=== PATIENT | male | born 1950 | race Caucasian/White ===

== ENCOUNTER 2019-07-08 18:50 | Inpatient (IN) ==
[2019-07-08] MEDS ORDERED: SODIUM CHLORIDE 0.9% 1,000 ML IV STA (19:08)
[2019-07-08] MEDS ORDERED: ASPIRIN 325 MG TABLET PO STA (19:08)
[2019-07-08 19:17] LABS: Basophils # 0.1 10*3/uL (0.0-0.2); Basophils % 0.6 % (0.0-0.8); Eosinophils # 0.3 10*3/uL (0.0-0.87); Eosinophils % 2.9 % (0.00-10.9); Hemoglobin 14.3 GM/DL (14.0-18.0); Immature Granulocytes % 0.6 %; Immature Granulocytes Absolute 0.07 #; Lymphocytes # 3.7 10*3/uL (1.4-4.0); Lymphocytes % 31.6 % (21.2-54.2); Mean Corpuscular HGB Conc 33.3 GM/DL (32-36); Mean Corpuscular Volume 84.1 FL (87-102); Mean Platelet Volume 10.8 FL (9.6-12.0); Monocytes % 8.2 % (1.7-12.7); Neutrophils % 56.1 % (38.7-73.9); Platelet Count 330 T/CUMM (130-400); Red Blood Count 5.11 MC/CUMM (3.8-5.5); Red Cell Distribution Width 13.3 % (9.3-17.3); White Blood Count 11.7 T/CUMM (4-12)
[2019-07-08 19:27] LABS: PT Patient Result 10.4 SECS (9.8-11.9)
[2019-07-08 19:40] LABS: Alanine Aminotransferase 29 U/L (16-61); Albumin 3.9 G/DL (3.4-5.0); Alkaline Phosphatase 71 U/L (45-117); Aspartate Amino Transferase 18 U/L (0-37); Blood Urea Nitrogen 18 MG/DL (7-18); CKMB % 3.2 %; Calcium 9.2 MG/DL (8.5-10.1); Glucose 110 MG/DL (74-106); Osmolality,Calculated 279.5 MOS/KG (273-304); Total Protein 7.3 G/DL (6.4-8.3); Troponin I < 0.015 NG/ML (0.00-0.045)
[2019-07-08 19:43] LABS: Estimated Glom Filtration Rate 0 ML/MIN
[2019-07-08] MEDS ORDERED: MAGNESIUM SULF RIDER 2 GM in PREMIX 1 EACH IV PRN (20:29)
[2019-07-08] MEDS ORDERED: MAGNESIUM SULF RIDER 4 GM in PREMIX 1 EACH IV PRN (20:29)
[2019-07-08] MEDS ORDERED: ONDANSETRON 4 MG/2 ML VIAL IV PRN (20:29)
[2019-07-08] MEDS: SODIUM CHLORIDE 0.45% 1,000 ML IV SCH (20:45)
[2019-07-08 22:18] LABS: Troponin I < 0.015 NG/ML (0.00-0.045)
[2019-07-08] MEDS: ENOXAPARIN 40 MG/0.4 ML SYRINGE SUBCUT SCH (22:52)
[2019-07-09 00:06] LABS: CKMB % 2.5 %; Troponin I < 0.015 NG/ML (0.00-0.045)
[2019-07-09 04:33] LABS: Basophils % 0.4 % (0.0-0.8); Eosinophils # 0.2 10*3/uL (0.0-0.87); Hematocrit 38.1 VOL% (42.0-52.0); Hemoglobin 12.6 GM/DL (14.0-18.0); Immature Granulocytes % 0.3 %; Immature Granulocytes Absolute 0.03 #; Lymphocytes # 2.9 10*3/uL (1.4-4.0); Lymphocytes % 29.9 % (21.2-54.2); Mean Corpuscular HGB Conc 33.1 GM/DL (32-36); Mean Corpuscular Volume 83.9 FL (87-102); Monocytes % 8.8 % (1.7-12.7); Neutrophils % 58.6 % (38.7-73.9); Platelet Count 234 T/CUMM (130-400); Red Blood Count 4.54 MC/CUMM (3.8-5.5); Red Cell Distribution Width 13.7 % (9.3-17.3); White Blood Count 9.6 T/CUMM (4-12)
[2019-07-09 04:57] LABS: Albumin 3.4 G/DL (3.4-5.0); Bilirubin,Total 0.9 MG/DL (0.2-1.0); Calcium 8.3 MG/DL (8.5-10.1); Osmolality,Calculated 283.3 MOS/KG (273-304); Total Protein 6.3 G/DL (6.4-8.3)
[2019-07-09 04:58] LABS: Troponin I 0.019 NG/ML (0.00-0.045)
[2019-07-09] MEDS: SODIUM CHLORIDE 0.45% 1,000 ML IV SCH ×2 (05:54→15:57)
[2019-07-09] MEDS: PANTOPRAZOLE 40 MG TABLET PO SCH (09:00)
[2019-07-09] MEDS ORDERED: FLUTICASONE 50 MCG NASAL SPRAY 16 GM BOTTLE BOTH NARES PRN (09:04)
[2019-07-09] MEDS ORDERED: GLUCAGON 1 MG VIAL IM PRN (09:05)
[2019-07-09] MEDS ORDERED: DEXTROSE 10% 250 ML BAG IV PRN (09:05)
[2019-07-09] MEDS ORDERED: LIDOCAINE 1% 20 ML VIAL ONE (11:01)
[2019-07-09] MEDS ORDERED: HEPARIN/NACL 0.9% 2 UNITS/ML 500 ML IV ONE (11:01)
[2019-07-09] MEDS ORDERED: ceFAZolin 1,000 MG VIAL ONE (11:05)
[2019-07-09] MEDS ORDERED: fentaNYL 100 MCG/2 ML VIAL ONE ×2 (11:07→11:20)
[2019-07-09] MEDS ORDERED: MIDAZOLAM 2 MG/2 ML VIAL ONE ×2 (11:07→11:20)
[2019-07-09] MEDS: INSULIN LISPRO 100 UNIT/ML SUBCUT SCH ×3 (11:30→20:24)
[2019-07-09] MEDS ORDERED: TISSUE ADHESIVE 1 EACH APPLICATOR TOP ONE (12:03)
[2019-07-09] MEDS ORDERED: ACETAMINOPHEN 325 MG TABLET PO PRN (12:16)
[2019-07-09] MEDS ORDERED: IBUPROFEN 400 MG TABLET PO PRN (12:16)
[2019-07-09] MEDS ORDERED: hydrALAZINE 20 MG/1 ML VIAL IV PRN (16:01)
[2019-07-09] MEDS: carvediloL 25 MG TABLET PO SCH (17:24)
[2019-07-09] MEDS: LOSARTAN 50 MG TABLET PO SCH (17:25)
[2019-07-09] MEDS: ceFAZolin 1,000 MG in SYRINGE 1 EACH IV SCH (17:25)
[2019-07-09] MEDS: ENOXAPARIN 40 MG/0.4 ML SYRINGE SUBCUT SCH (20:02)
[2019-07-09] MEDS ORDERED: ATORVASTATIN 40 MG TABLET PO SCH (21:00)
[2019-07-10] MEDS: SODIUM CHLORIDE 0.45% 1,000 ML IV SCH ×2 (00:04→05:45)
[2019-07-10] MEDS: ceFAZolin 1,000 MG in SYRINGE 1 EACH IV SCH (02:23)
[2019-07-10 05:41] VITALS: BP 159/80
[2019-07-10 06:39] LABS: Basophils % 0.5 % (0.0-0.8); Eosinophils # 0.2 10*3/uL (0.0-0.87); Hematocrit 38.8 VOL% (42.0-52.0); Hemoglobin 12.8 GM/DL (14.0-18.0); Immature Granulocytes % 0.5 %; Immature Granulocytes Absolute 0.04 #; Lymphocytes # 1.3 10*3/uL (1.4-4.0); Lymphocytes % 16.9 % (21.2-54.2); Mean Corpuscular Volume 85.7 FL (87-102); Mean Platelet Volume 10.7 FL (9.6-12.0); Monocytes % 8.2 % (1.7-12.7); Neutrophils % 71.9 % (38.7-73.9); Platelet Count 193 T/CUMM (130-400); Red Blood Count 4.53 MC/CUMM (3.8-5.5); Red Cell Distribution Width 13.2 % (9.3-17.3); White Blood Count 7.7 T/CUMM (4-12)
[2019-07-10 07:05] LABS: Calcium 8.6 MG/DL (8.5-10.1); Osmolality,Calculated 281.4 MOS/KG (273-304)
[2019-07-10] MEDS: INSULIN LISPRO 100 UNIT/ML SUBCUT SCH (08:29)
[2019-07-10] MEDS: LOSARTAN 50 MG TABLET PO SCH (08:52)
[2019-07-10] MEDS: carvediloL 25 MG TABLET PO SCH (08:52)
[2019-07-10] MEDS: PANTOPRAZOLE 40 MG TABLET PO SCH (08:52)
[2019-07-10] MEDS ORDERED: hydroCHLOROthiazide 25 MG TABLET PO SCH (09:00)
[2019-07-10] MEDS ORDERED: ASPIRIN CHEW 81 MG TABLET PO SCH (09:00)
== END 2019-07-10 10:51 | disposition home or self-care (01) | DRG 244 ==
LOC: N.ED 18:50 → N.EDINP 20:29 → N.TELEN 21:01
PROVIDERS: ADMIT Internal Medicine Clinical Cardiac Electrophysiology; ATTEND Internal Medicine Clinical Cardiac Electrophysiology